=== PATIENT | female | born 1955 | race Caucasian/White ===

== ENCOUNTER 2024-05-17 19:26 | Emergency (ER) | payer OTHER, SELFPAY ==
[2024-05-17] VITALS (10 sets, daily range): BP systolic 91–121; BP diastolic 53–59; PULSE 58–63; RESP 17–18; TEMP 36.6; O2SAT 98–100; BMI 19.8
--- NOTE | 2024-05-17 19:48 | EKG_ITS ---
[address] [address] Test Date: 2024-05-17 Pat Name: Jeane Rosado Department: [facility] Room: Gender: Female [employer]: DEMETRIUS : 1955 Requested By: Order Number: [id number] Reading MD: Yoandy Schreiber Measurements Intervals [place] Rate: 60 P: UT: QRS: -82 QRSD: 140 T: 102 QT: 450 QTc: 450 Interpretive Statements Ventricular-paced rhythm Electronically Signed On 05-23-2024 20:08:11 PDT by Yoandy Schreiber
[2024-05-17 20:14] LABS: Add Manual Diff / Slide Review NO; Basophils Absolute Auto 100 /uL (0-100); Eosinophils Absolute Auto 200 /uL (0-450); Eosinophils Percent Auto 2.5 % (2-4); Hematocrit 23.8 % (36-46); Lymphocytes Absolute Auto 2000 /uL (1100-4500); Lymphocytes Percent Auto 31.5 % (25-40); Mean Corpuscular HGB Conc 33.5 % (30-36); Mean Corpuscular Hemoglobin 31.7 PG (26-34); Mean Corpuscular Volume 94.6 fL (80-100); Monocytes Absolute Auto 500 /uL (0-900); Monocytes Percent Auto 7.3 % (3-14); Neutrophils Absolute Auto 3700 /uL (1500-7000); Neutrophils Percent Auto 57.7 % (50-75); Platelet Count 336 X10^3/uL (150-400); Red Blood Cell Count 2.51 X10^6/uL (4.0-5.2); Red Cell Distribution Width 14.3 % (11.6-14.8); White Blood Cell Count 6.3 X10^3/uL (4.5-11.0)
[2024-05-17 20:21] LABS: Alanine Aminotransferase 15 IU/L (<35); Albumin 3.7 g/dL (3.5-5.0); Albumin Globulin Ratio 1.3 (1.0-2.8); Alkaline Phosphatase 73 U/L (38-126); Aspartate Aminotransferase 25 IU/L (14-36); BUN Creatinine Ratio 41.1 (6-22); Bilirubin Total 0.5 mg/dL (0.2-1.3); Blood Urea Nitrogen 30 mg/dL (7-17); Carbon Dioxide 24 mmol/L (22-32); Chloride 106 mmol/L (98-107); Estimated Glomerular Filt Rate > 60 mL/min (>60); Globulin 2.9 g/dL (1.7-4.1); Glucose 108 mg/dL (80-110); HEMOLYSIS < 15 (0-50); Lipase 48 U/L (23-300); Potassium 4.3 mmol/L (3.4-5.1); Sodium 138 mmol/L (137-145); Total Protein 6.6 g/dL (6.3-8.2)
--- NOTE | 2024-05-17 21:59 | ED_ITS ---
HPI - Abdominal Pain General Chief Complaint: Abdominal Pain Stated Complaint: abdominal pain Time Seen by Provider: 05/17/24 21:59 Source: patient Mode of arrival: Wheelchair History of Present Illness HPI narrative: 68-year-old female with pacemaker on Eliquis, diabetes, hyperlipidemia, CVA with right-sided residual deficits comes into the ED from home for evaluation of abdominal pain, states it is in the right lower quadrant, states it started over the past 3 nights, denies any vomiting denies any history of abdominal surgery, denies any other symptoms such as headache visual disturbances chest pain shortness breath fever chills or any other GI/ symptoms time. States that she has been taking Tylenol Motrin with improvement of symptoms but due to persistent symptoms decided come into the ED for further evaluation treatment. She does complain of constipation states last normal bowel movement was yesterday Related Data Home Medications Medication Instructions Recorded Confirmed apixaban 5 mg tablet (Eliquis) 5 mg PO BID 05/17/24 05/17/24 Allergies Allergy/AdvReac Type Severity Reaction Status Date / Time morphine [MORPHINE] Allergy Unknown Verified 05/17/24 19:35 sulfamethoxazole Allergy Unknown Verified 05/17/24 19:35 [From ] trimethoprim [From ] Allergy Unknown Verified 05/17/24 19:35 Review of Systems Review of Systems Narrative: General: Denies fever, chills, weight loss HEENT: Denies headache, eye drainage, eye irritation, head trauma, sore throat, voice change Cardiovascular: Denies any chest pain, palpitations, tachycardia Respiratory: Denies any shortness of breath, cough, wheeze, stridor GI/: Positive abdominal pain, denies nausea, vomiting, diarrhea, bright red blood per rectum, melanotic stools, urinary frequency, urinary retention, dysuria, hematuria MSK: Denies any joint pain, muscle pains, swelling Skin: Denies any rashes, lesions, discoloration Neuro: Denies any headache, lightheadedness, dizziness, fainting, weakness Psych: Denies SI/HI Patient History Social History Smoking Status: Former smoker Smoking Status: Former smoker Exam Narrative Exam Narrative: General: Cooperative, well-developed, not in acute distress HEENT: Normocephalic, atraumatic, PERRLA, normal sclera, eyelids normal Neck: Active full range of motion, atraumatic Chest: Normal to inspection, negative crepitus, no overlying erythema ecchymosis Respiratory: Normal respiratory effort, not in acute respiratory distress, clear to auscultation bilaterally negative cough, wheeze, tachypnea, rhonchi, rales Cardiology: Regular rate rhythm negative gallop, murmur, rubs GI/: Mild tenderness to palpation lower abdomen, soft, non rigid, normal to inspection, exam deferred MSK: Full active range of motion in all 4 extremities, atraumatic, no tenderness to palpation of any bony prominences Skin: No rashes or lesions noted Neuro: Alert awake oriented x3, moves all 4 extremities spontaneously, cranial nerves intact, able to answer all questions appropriately follows commands appropriately Psych: Cooperative, negative suicidal or homicidal ideations Initial Vital Signs Initial Vital Signs: Vital Signs Temperature 98 F 05/17/24 19:30 Pulse Rate 61 05/17/24 19:30 Respiratory Rate 17 05/17/24 19:30 Blood Pressure 114/58 L 05/17/24 19:30 Pulse Oximetry 100 05/17/24 19:30 Oxygen Delivery Method Room Air 05/17/24 19:30 Course Orders Ordered: ED Orders 05/17/24 19:38 EKG-12 Lead Stat 05/17/24 20:00 Complete Blood Count AUTO DIFF Stat Comprehensive Metabolic Panel Stat Lipase Stat 05/17/24 22:00 CT abdomen pelvis w con Stat 05/18/24 00:01 Urine Culture Stat Urine Microscopic Stat Ondansetron HCl (Ondansetron 4 Mg/2 Ml Inj) 4 mg IV NOW PRN PRN Reason: Nausea And Vomiting Ondansetron HCl (Ondansetron 4 Mg Odt) 4 mg PO NOW PRN PRN Reason: Nausea And Vomiting Discontinued Medications Sodium Chloride (Normal Saline 0.9%) 1,000 mls @ 1,000 mls/hr IV BOLUS ONE Stop: 05/17/24 23:06 Last Admin: 05/18/24 00:09 Dose: Not Given Documented By: FAITH Ketorolac Tromethamine (Ketorolac 30 Mg/Ml Vial) 15 mg IV NOW ONE Stop: 05/17/24 22:08 Last Admin: 05/18/24 00:08 Dose: Not Given Documented By: FAITH Vital Signs Vital signs: Vital Signs - 8 hr 05/17/24 19:30 05/17/24 20:31 05/17/24 20:32 Temperature 98 F Pulse Rate 61 59 L 60 Respiratory Rate 17 Blood Pressure 114/58 L Pulse Oximetry 100 100 Oxygen Delivery Method Room Air 05/17/24 20:32 05/17/24 21:00 05/17/24 21:00 Temperature Pulse Rate 60 Respiratory Rate Blood Pressure 105/58 L 101/59 L Pulse Oximetry 100 Oxygen Delivery Method 05/17/24 21:30 05/17/24 21:30 05/17/24 22:00 Temperature Pulse Rate 63 Respiratory Rate Blood Pressure 91/54 L 101/55 L Pulse Oximetry 100 Oxygen Delivery Method 05/17/24 22:00 05/17/24 22:30 05/17/24 23:00 Temperature Pulse Rate 60 61 60 Respiratory Rate Blood Pressure Pulse Oximetry 100 100 100 Oxygen Delivery Method 05/17/24 23:44 Temperature Pulse Rate Respiratory Rate Blood Pressure Pulse Oximetry 98 Oxygen Delivery Method Room Air MDM - Abdominal Pain Differential Diagnosis Differential diagnosis: Likely abdominal pain, acute appendicitis, constipation, diverticulitis, gastroenteritis, pancreatitis and other (Urinary tract infection, electrolyte abnormality) Lab Data 05/17/24 20:00 05/17/24 20:00 Labs: Lab Results 05/17/24 05/17/24 Range/Units 20:00 23:55 WBC 6.3 (4.5-11.0) X10^3/uL RBC 2.51 L (4.0-5.2) X10^6/uL Hgb 8.0 L (12.0-16.0) g/dL Hct 23.8 L (36-46) % MCV 94.6 (80-100) fL MCH 31.7 (26-34) PG MCHC 33.5 (30-36) % RDW 14.3 (11.6-14.8) % Plt Count 336 (150-400) X10^3/uL Neut % (Auto) 57.7 (50-75) % Lymph % (Auto) 31.5 (25-40) % [place] % (Auto) 7.3 (3-14) % Eos % (Auto) 2.5 (2-4) % Baso % (Auto) 1.0 (0-2) % Neut # (Auto) 3700 (6157-9030) /uL Lymph # (Auto) 2000 (7776-2379) /uL [place] # (Auto) 500 (0-900) /uL Eos # (Auto) 200 (0-450) /uL Baso # (Auto) 100 (0-100) /uL Sodium 138 (137-145) mmol/L Potassium 4.3 (3.4-5.1) mmol/L Chloride 106 (98-107) mmol/L Carbon Dioxide 24 (22-32) mmol/L BUN 30 H (7-17) mg/dL Creatinine 0.73 (0.52-1.04) mg/dL Estimated GFR > 60 (>60) mL/min BUN/Creatinine Ratio 41.1 H (6-22) Glucose 108 (80-110) mg/dL Calcium 9.0 (8.4-10.2) mg/dL Total Bilirubin 0.5 (0.2-1.3) mg/dL AST 25 (14-36) IU/L ALT 15 (<35) IU/L Alkaline Phosphatase 73 (38-126) U/L Total Protein 6.6 (6.3-8.2) g/dL Albumin 3.7 (3.5-5.0) g/dL Globulin 2.9 (1.7-4.1) g/dL Albumin/Globulin Ratio 1.3 (1.0-2.8) Lipase 48 (23-300) U/L Urine RBC 1-5/hpf (0-5/HPF) Urine WBC 0-1/hpf (0-5/HPF) Ur Squamous Epith Cells 5-10 /hpf H (0-5/HPF) Amorphous Sediment 1+ Urine Bacteria Few (2-10) H (None) Urine Mucus 1+ H (Negative) Ur Culture Indicated? Cult not indicated Vol Urine Centrifuged 10ml (spun) Point of care testing: Urine Dip Bedside Urine Glucose Negative Bedside Urine Bilirubin - Negative Bedside Urine Ketone - Negative Urine Specific [place] 1.015 Bedside Urine Occult Blood - Negative Bedside Urine pH 6.0 Bedside Urine Protein +/- 15 Bedside Urine Urobilinogen - Negative Bedside Urine Nitrite - Negative Bedside Urine Leukocytes +/- [address] scan - abdomen/pelvis: Radiologist's Impression: [address] [address] [address] Scan Report Signed Patient: Jeane Rosado MR#: [id number] : 1955 Acct:[id number] Age/Sex: 68 / F Date of Service: 05/17/24 Loc: ED Accession Number: [id number] Procedure: CT abdomen pelvis w con Ordering Provider: Yoandy Zimmerman D.O. PROCEDURE: CT ABDOMEN PELVIS W CON INDICATIONS: RLQ abd pain TECHNIQUE: After the administration of intravenous contrast, axial sections acquired from the lung bases to the pubic symphysis. Coronal and sagittal reformats were performed. For radiation dose reduction, the following was used: automated exposure control, adjustment of mA and/or kV according to patient size. COMPARISON: None. FINDINGS: Image quality: Diagnostic. Lower Chest: No significant findings. ABDOMEN: Liver: Steatosis. Gallbladder: No radiopaque gallstones or wall thickening. Biliary ducts: No biliary dilation. Pancreas: No ductal dilation. Spleen: Size is within normal limits. Adrenal Glands: No adrenal nodules. Kidneys and Ureters: No hydronephrosis. No solid mass. No complex renal cystic lesion which requires follow up. Stomach and Bowel: Normal colonic caliber, without significant wall thickening. Peritoneum: No abnormal intraperitoneal fluid. No free air. Ventral Wall: No significant ventral hernia. Abdominal Nodes: No retroperitoneal or mesenteric adenopathy by size criteria. Vessels: Aorta and inferior vena cava are normal in size. PELVIS: Pelvic Organs: Unremarkable. Bladder: No bladder wall thickening, accounting for underdistention. Pelvic Nodes: No enlarged lymph nodes. Miscellaneous: No inguinal hernias are seen. Bones: No aggressive osseous abnormality. IMPRESSION: No visualized cause of right lower quadrant pain. ECG Data Interpretation: EKG interpreted ED physician ventricularly paced at 60 beats per minute QTC 450 MDM Narrative Medical decision making narrative: 68-year-old female with a history of pacemaker on Eliquis, CVA with left-sided residual deficits wheelchair at baseline, hyperlipidemia, diabetes presenting for lower abdominal pain, states it has been ongoing persistent for the past 3 days worse in the right lower quadrant denies any nausea vomiting, states that she has been constipated has not had a normal bowel movement in the past 24 hours. She denies any other symptoms at this time. Lab work without leukocytosis Chem panel unremarkable, CT scan without any acute findings, urinalysis did show positive leukocytes however many epithelial cells and very small amount of bacteria, this is most likely contaminated catch, therefore no indication for antibiotics at this time, patient was instructed to follow up with her primary care doctor in outpatient setting she was given strict return precautions she verbalized understanding of this and agrees to being discharged home with outpatient follow up Discharge Plan Departure Patient Disposition: Home Clinical Impression: Abdominal pain Instructions: DI for Abdominal Pain-Adult Activity Restrictions/Additional Instructions: Please follow up with your primary care doctor Please read the discharge instructions sheet carefully and bring all papers to all doctor follow-up visits, as it may contain information that your doctor may want to see. Disease processes change and evolve, if your symptoms worsen or if you develop any new symptoms that are concerning to you please return for evaluation. Your evaluation today does not show any evidence of any life- threatening/serious illnesses requiring admission to the hospital or surgery. Please follow-up with your doctor for re-evaluation in approximately 1 day. Seek immediate medical attention for any worrisome symptoms. *If you do not have a primary care provider please contact the [facility] Resource line at [phone]. They will ask some questions about your medical history and help get you set up with a doctor in the community. Prescriptions: No Action Eliquis 5 mg tablet 5 mg PO BID Referrals: Anabela Rodas MD [Primary Care Provider] - Stand Alone Forms: Patient Portal/API/Survey
--- NOTE | 2024-05-17 23:10 | PC.NURSE ---
Per RN May, the patient's prior right upper arm US guided IV infiltrated in CT during flush of saline, was removed by CT staff. I came to the bedside and placed a new US guided IV in right upper arm above the prior infiltration.
--- NOTE | 2024-05-17 23:32 | PC.NURSE ---
Pt has gone to CT x 2 and 2 US placed IV's have blown. Attempted to place PIV, veins are very fragile and blow. No IV access. Pt denies pain, states she wants to go home. Dr Zimmerman aware, now speaking with pt.
[2024-05-18 00:15] LABS: Urine Volume 10mL (spun)
[2024-05-18 00:16] LABS: Amorphous Sediment Urine 1+; Bacteria Urine Few (2-10); Culture Indicated Urine Cult Not Indicated; Mucus Urine 1+ (Negative); RBC Urine 1-5/HPF (0-5/HPF); Squamous Epithelial Cell Urine 5-10 /HPF (0-5/HPF); WBC Urine 0-1/HPF (0-5/HPF)
== END 2024-05-18 00:39 | disposition home or self-care (01) ==
PROVIDERS: Emergency Provider Student in an Organized Health Care Education/Training Program; PCP Internal Medicine
DX: R10.31 Right lower quadrant pain (principal); Z95.0 Presence of cardiac pacemaker; Z86.73 Personal history of transient ischemic attack (TIA), and cerebral infarction without residual deficits
CPT/HCPCS: 36415; 74177; 80053; 81003; 81015; 83690; 85025; 87086; 93005; 99283; 99284; J1885; Q9967